=== PATIENT | female | born 1955 | race Two or more races ===

== ENCOUNTER 2019-02-18 05:26 | Day surgery (SDC) | payer OTHER ==
[~2019-02-18 05:26] MED LIST: OMEPRAZ PO; ZYRTEC10 M3 PO
[2019-02-18] MEDS ORDERED: ALEVE220 M1 PO (10:59)
[2019-02-18] MEDS ORDERED: PERCOCET 5-3251 EACH PO (10:59)
[2019-02-18] MEDS ORDERED: DUI500 PO (10:59)
== END 2019-02-18 12:50 | disposition home or self-care (01) ==
LOC: CIR.AMB 05:26
DX: S52.571A Other intraarticular fracture of lower end of right radius, initial encounter for closed fracture (principal); M80.00XA Age-related osteoporosis with current pathological fracture, unspecified site, initial encounter for fracture
CPT/HCPCS: 25609; 20902; C1776